=== PATIENT | male | born 1945 | race Caucasian/White ===

== ENCOUNTER → 2017-05-10 | Outpatient (CLI) | payer MEDICARE, BC ==
[2017-05-10 15:54] LABS: Bilirubin, Urine Neg (Neg); Blood, Urine 2+ (Neg); Glucose Qualitative, Urine Neg (Neg); Ketones, Urine Neg (Neg); Leukocyte Esterase, Urine 1+ (Neg); Nitrite, Urine Neg (Neg); Protein, Urine 2+ (Neg); Urobilinogen, Urine NORM (Normal)
[2017-05-10 16:00] LABS: Appearance, Urine Clear (Clear); Color, Urine Yellow (P-Yellow)
[2017-05-10 16:02] LABS: Squamous Epithelial Cells Few /hpf (Few)
[2017-05-10 16:03] LABS: Bacteria Few /hpf; Renal Epithelial Few /hpf (0-Rare)
== END | disposition home or self-care (01) ==
LOC: LAB 15:42
PROVIDERS: Nurse Practitioner Family
DX: R80.9 Proteinuria, unspecified (principal)
CPT/HCPCS: 81001; 87077; 87086; 87186

== ENCOUNTER → 2018-03-12 | Outpatient (CLI) | payer MEDICARE, BC | END | disposition home or self-care (01) | LOC: PLD 09:32 → LAB SHORT 09:32 | DX: C06.0 Malignant neoplasm of cheek mucosa (principal) | CPT/HCPCS: 88305 ==

== ENCOUNTER 2019-12-08 06:31 | Day surgery (SDC) | payer OTHER ==
[~2019-12-08] VITALS: Ht 165.1 cm; Wt 81.0 kg
[~2019-12-08 06:31] MED LIST: ACET325 PO; AMLO5 PO; AMOCLA875 PO; ATROVENT HFA12.9 GM; B-1100 M1 PO; DIAZ10; DILT180 PO; EZET10 PO; MELATONIN5 M1 PO; PRAZ2 PO; TAMS.4ER PO; ZYRTEC10 M2 PO
[2019-12-08] MEDS ORDERED: TIOT18 INH (07:37)
--- NOTE | 2019-12-08 08:52 | NUR ---
PT BACK TO RECOVERY ROOM VIA RECLINER AFTER PROCEDURE. TR BAND PRESENT ON RIGHT WRIST, SITE IS CLEAN AND DRY. NO BLEEDING OR SWELLING NOTED.
--- NOTE | 2019-12-08 09:18 | NUR ---
PT VISITING WITH SPOUSE, CALL LIGHT IN REACH. DENIES PAIN OR DISCOMFORT.
--- NOTE | 2019-12-08 10:24 | NUR ---
TR BAND HAS BEEN FULLY DEFLATED. NO BLEEDING OR SWELLING NOTED AT SITE. VSS, CALL LIGHT IN REACH. PT EATING BREAKFAST, AT BEDSIDE.
--- NOTE | 2019-12-08 11:47 | NUR ---
PATIENT DISCHARGE INSTRUCTIONS GIVEN. RIGHT RADIAL SITE SOFT AND NONTENDER. ARM BOARD PLACED. HAND WARM, GOOD SENSATION TO EXTREMITY. IV DCED WITH CATHETER IN TACT. TAKEN TO RIDE VIA WHEEL CHAIR.
== END 2019-12-08 11:25 | disposition home or self-care (01) ==
LOC: MHTC 06:31
PROC: B2111ZZ Fluoroscopy of Multiple Coronary Arteries using Low Osmolar Contrast (ICD-10-PCS; principal; 2019-12-08)
DX: I25.10 Atherosclerotic heart disease of native coronary artery without angina pectoris (principal); I35.0 Nonrheumatic aortic (valve) stenosis; I44.2 Atrioventricular block, complete; I11.0 Hypertensive heart disease with heart failure; I50.9 Heart failure, unspecified; J44.9 Chronic obstructive pulmonary disease, unspecified; N40.1 Benign prostatic hyperplasia with lower urinary tract symptoms; R33.8 Other retention of urine; E78.5 Hyperlipidemia, unspecified; G60.9 Hereditary and idiopathic neuropathy, unspecified; R91.8 Other nonspecific abnormal finding of lung field; G25.0 Essential tremor; Z96.641 Presence of right artificial hip joint; Z79.899 Other long term (current) drug therapy; Z79.51 Long term (current) use of inhaled steroids; Z87.891 Personal history of nicotine dependence; Z88.2 Allergy status to sulfonamides; Z88.8 Allergy status to other drugs, medicaments and biological substances
CPT/HCPCS: 76937; 85347; 93454; 99152; C1769; C1894; J1644; J2250; J3010; J7030; J7050; Q9967

== ENCOUNTER → 2020-05-12 | Outpatient (CLI) | payer OTHER ==
[~2020-05-12] MED LIST changes: +TIOT18 INH
== END | disposition home or self-care (01) ==
LOC: LAB SHORT 11:18 → PLD 11:18
DX: C44.320 Squamous cell carcinoma of skin of unspecified parts of face (principal)
CPT/HCPCS: 88305

== ENCOUNTER → 2020-05-26 | Outpatient (CLI) | payer OTHER | END | disposition home or self-care (01) | LOC: LAB SHORT 12:30 | DX: L57.8 Other skin changes due to chronic exposure to nonionizing radiation (principal); Z85.828 Personal history of other malignant neoplasm of skin | CPT/HCPCS: 88305 ==

== ENCOUNTER → 2020-08-09 | Outpatient (CLI) | payer OTHER | LOC: LAB SHORT 17:45 | DX: C14.8 Malignant neoplasm of overlapping sites of lip, oral cavity and pharynx (principal) | CPT/HCPCS: 87070; 87075; 87205 ==

== ENCOUNTER → 2021-05-04 | Outpatient (CLI) | payer OTHER | END | disposition home or self-care (01) | LOC: LAB 11:18 → LAB SHORT 11:18 | DX: C44.42 Squamous cell carcinoma of skin of scalp and neck (principal) | CPT/HCPCS: 88305 ==

== ENCOUNTER → 2021-05-23 | Outpatient (CLI) | payer OTHER | END | disposition home or self-care (01) | LOC: PLD 15:02 → LAB SHORT 15:02 → LAB 15:02 | DX: C44.42 Squamous cell carcinoma of skin of scalp and neck (principal) | CPT/HCPCS: 88305 ==

== ENCOUNTER → 2021-11-30 | Outpatient (CLI) | payer OTHER | END | disposition home or self-care (01) | LOC: PLD 14:55 → LAB SHORT 14:55 | DX: L57.8 Other skin changes due to chronic exposure to nonionizing radiation (principal); L72.9 Follicular cyst of the skin and subcutaneous tissue, unspecified | CPT/HCPCS: 88305 ==